=== PATIENT | female | born 1965 | race American Indian/Alaskan Native ===

== ENCOUNTER 2017-03-02 04:41 | Inpatient (IN) | payer SELFPAY ==
[2017-03-02] MEDS ORDERED: NACL 0.9% 500 ML 500 ML IV ONE (04:58)
[2017-03-02 06:13] LABS: Albumin 3.8 g/dL (3.9-5); Alkaline Phosphatase 81 units/L (35-129); BUN/Creatinine Ratio 23; Blood Urea Nitrogen 14 mg/dL (7-17); Carbon Dioxide 26 mmol/L (22-30); Chloride 102.4 mmol/L (98-107); Glucose 116 mg/dL (65-100); Sodium 140 mmol/L (137-145); Total Protein 7.6 g/dL (6.3-8.2)
[2017-03-02 06:16] LABS: Anion Gap 16 mmol/L; Potassium 4.7 mmol/L (3.6-5.0)
[2017-03-02 06:17] LABS: Alanine Aminotransferase 12 units/L (7-56)
[2017-03-02 06:20] LABS: Basophils % (Auto) 0.4 % (0.0-1.8); Eosinophils % (Auto) 8.9 % (0.0-4.3); Hematocrit 43.1 % (30.3-42.9); Hemoglobin 13.9 gm/dl (10.1-14.3); Mean Corpuscular HGB Conc 32 % (30-34); Mean Corpuscular Hemoglobin 29 pg (28-32); Mean Corpuscular Volume 89 fl (79-97); Platelet Count 327 K/mm3 (140-440); Red Blood Count 4.87 M/mm3 (3.65-5.03); White Blood Count 9.8 K/mm3 (4.5-11.0)
--- NOTE | 2017-03-02 06:22 | Emergency Department Report ---
ED Shortness of Breath HPI - General Chief Complaint: Fever Stated Complaint: ASTHMA Time Seen by Provider: 03/02/17 06:18 Source: patient Mode of arrival: Ambulatory Limitations: No Limitations - History of Present Illness Initial Comments: Patient states that she has been having cough occasionally productive of clear sputum for the last week. She's had dyspnea at rest and on exertion. He states that she is a type II diabetic and intermittently is on prednisone. She is not on home O2. She was found to be hypoxic on room air. At the time of my encounter she was not in respiratory distress but had persistent wheezing. Arterial blood gas showed that the patient had a PO2 was 48 which was relatively well tolerated. Work of breathing was normal. She was not retaining CO2. After the blood gas she was replaced on on oxygen. X-ray will reassess her condition as she did have some CO2 retention. MD Complaint: shortness of breath, "asthma attack" -: Gradual, week(s) Quality: other (no complaint of chest pain ) Consistency: constant Improves With: nothing Worsens With: exertion Known History Of: COPD Context: recent URI Associated Symptoms: denies other symptoms - Related Data Home Oxygen Therapy: No Home Medications Medication Instructions Recorded Confirmed Last Taken Albuterol (Nf) 2 puff IH BID 01/12/16 03/02/17 03/22/16 Enalapril Maleate 10 mg PO DAILY 01/12/16 03/02/17 03/22/16 metFORMIN 500 mg PO BID 01/12/16 03/02/17 03/22/16 Omeprazole Magnesium [PriLOSEC] 10 mg PO QDAY 03/02/17 03/02/17 Unknown Previous Rx's Medication Instructions Recorded Last Taken Type Flovent 44 MCG/PUFF HFA 2 puff IH BID #30 01/13/16 03/22/16 Rx Allergies Allergy/AdvReac Type Severity Reaction Status Date / Time No Known Allergies Allergy Unverified 11/02/13 13:26 ED Review of Systems ROS: Stated complaint: ASTHMA Other details as noted in HPI Constitutional: denies: chills, fever Eyes: denies: eye pain, eye discharge, vision change ENT: denies: ear pain, throat pain Respiratory: cough, shortness of breath, SOB with exertion, SOB at rest, wheezing Cardiovascular: denies: chest pain, palpitations Endocrine: no symptoms reported Gastrointestinal: denies: abdominal pain, nausea, diarrhea Genitourinary: denies: urgency, dysuria, discharge Musculoskeletal: denies: back pain, joint swelling, arthralgia Skin: denies: rash, lesions Neurological: denies: headache, weakness, paresthesias Psychiatric: denies: anxiety, depression Hematological/Lymphatic: denies: easy bleeding, easy bruising ED Past Medical Hx - Past Medical History Previous Medical History?: Yes Hx Hypertension: Yes Hx Heart Attack/AMI: No Hx Congestive Heart Failure: No Hx Diabetes: Yes Hx Deep Vein Thrombosis: No Hx Pulmonary Embolism: No Hx Liver Disease: No Hx Sickle Cell Disease: No Hx Asthma: Yes Hx COPD: Yes Hx Tuberculosis: No Hx HIV: No - Surgical History Past Surgical History?: Yes Hx Coronary Stent: No Hx Open Heart Surgery: No Hx Pacemaker: No Hx Internal Defibrillator: No Hx Appendectomy: No Hx Breast Surgery: No Additional Surgical History: c-sect x2 - Social History Smoking Status: Current Every Day Smoker Substance Use Type: None - Medications Home Medications: Home Medications Medication Instructions Recorded Confirmed Last Taken Type Albuterol (Nf) 2 puff IH BID 01/12/16 03/02/17 03/22/16 History Enalapril Maleate 10 mg PO DAILY 01/12/16 03/02/17 03/22/16 History metFORMIN 500 mg PO BID 01/12/16 03/02/17 03/22/16 History Flovent 44 MCG/PUFF HFA 2 puff IH BID #30 01/13/16 03/02/17 03/22/16 Rx Omeprazole Magnesium [PriLOSEC] 10 mg PO QDAY 03/02/17 03/02/17 Unknown History ED Physical Exam - General Limitations: No Limitations General appearance: alert, in no apparent distress - Head Head exam: Present: atraumatic, normocephalic - Eye Eye exam: Present: normal appearance. Absent: scleral icterus - ENT ENT exam: Present: normal exam, mucous membranes moist - Neck Neck exam: Present: normal inspection. Absent: tenderness, meningismus - Respiratory Respiratory exam: Present: wheezes (bilaterally), prolonged expiratory. Absent : normal lung sounds bilaterally, respiratory distress, accessory muscle use, decreased breath sounds - Cardiovascular Cardiovascular Exam: Present: regular rate, normal rhythm. Absent: systolic murmur, diastolic murmur, rubs, gallop - GI/Abdominal GI/Abdominal exam: Present: soft, normal bowel sounds. Absent: distended, tenderness, guarding, rebound, rigid - Extremities Exam Extremities exam: Present: normal inspection, normal capillary refill. Absent: tenderness, pedal edema, joint swelling, calf tenderness - Back Exam Back exam: Present: normal inspection - Neurological Exam Neurological exam: Present: alert, oriented X3, CN II-XII intact. Absent: motor sensory deficit - Psychiatric Psychiatric exam: Present: normal affect, normal mood - Skin Skin exam: Present: warm, dry, intact, normal color. Absent: rash ED Course Vital Signs 03/02/17 03/02/17 03/02/17 04:51 06:02 06:13 Temperature 97.9 F 98.5 F Pulse Rate 108 H 83 Pulse Rate [ Bilateral Upper Lobe] Respiratory 24 23 20 Rate Respiratory Rate [Bilateral Upper Lobe] Blood Pressure 137/94 146/94 [Right] O2 Sat by Pulse 90 95 97 Oximetry 03/02/17 03/02/17 03/02/17 07:12 07:25 07:52 Temperature 98.1 F Pulse Rate 102 H Pulse Rate [ 85 88 Bilateral Upper Lobe] Respiratory 32 H Rate Respiratory 20 18 Rate [Bilateral Upper Lobe] Blood Pressure 131/83 [Right] O2 Sat by Pulse 93 Oximetry 03/02/17 08:26 Temperature 98.2 F Pulse Rate 94 H Pulse Rate [ Bilateral Upper Lobe] Respiratory 20 Rate Respiratory Rate [Bilateral Upper Lobe] Blood Pressure 110/74 [Right] O2 Sat by Pulse 93 Oximetry - Reevaluation(s) Reevaluation #1: Patient given mag sulfate, Solu-Medrol, supplemental oxygen and DuoNeb as. Admission to hospital service. 03/02/17 11:10 03/02/17 11:11 ED Medical Decision Making - Lab Data Result diagrams: 03/02/17 06:01 03/02/17 06:01 Laboratory Results - last 24 hr 03/02/17 03/02/17 03/02/17 05:17 06:01 06:01 WBC 9.8 RBC 4.87 Hgb 13.9 Hct 43.1 H MCV 89 MCH 29 MCHC 32 RDW 16.0 H Plt Count 327 Lymph % (Auto) 27.9 Gilliam % (Auto) 8.4 H Eos % (Auto) 8.9 H Baso % (Auto) 0.4 Lymph # 2.7 Gilliam # 0.8 Eos # 0.9 H Baso # 0.0 Seg Neutrophils % 54.4 Seg Neutrophils # 5.3 VBG pH 7.332 Sodium 140 Potassium 4.7 Chloride 102.4 Carbon Dioxide 26 Anion Gap 16 BUN 14 Creatinine 0.6 L Estimated GFR > 60 BUN/Creatinine Ratio 23 Glucose 116 H Calcium 9.0 Total Bilirubin 0.30 AST 22 ALT 12 Alkaline Phosphatase 81 Total Protein 7.6 Albumin 3.8 L Albumin/Globulin Ratio 1.0 Laboratory Results - last 24 hr 03/02/17 03/02/17 03/02/17 05:01 05:01 05:17 WBC RBC Hgb Hct MCV MCH MCHC RDW Plt Count Lymph % (Auto) Gilliam % (Auto) Eos % (Auto) Baso % (Auto) Lymph # Gilliam # Eos # Baso # Seg Neutrophils % Seg Neutrophils # PT 13.4 INR 0.97 APTT 30.3 ABG pH ABG pCO2 ABG pO2 ABG HCO3 ABG O2 Saturation ABG O2 Content ABG Base Excess ABG Hemoglobin ABG Carboxyhemoglobin ABG Methemoglobin VBG pH 7.332 Oxyhemoglobin FiO2 Sodium Potassium Chloride Carbon Dioxide Anion Gap BUN Creatinine Estimated GFR BUN/Creatinine Ratio Glucose Hemoglobin A1c Lactic Acid Calcium Magnesium Total Bilirubin Direct Bilirubin Indirect Bilirubin AST ALT Alkaline Phosphatase Troponin T NT-Pro-B Natriuret Pep Total Protein Albumin Albumin/Globulin Ratio 03/02/17 03/02/17 03/02/17 06:01 06:01 06:01 WBC 9.8 RBC 4.87 Hgb 13.9 Hct 43.1 H MCV 89 MCH 29 MCHC 32 RDW 16.0 H Plt Count 327 Lymph % (Auto) 27.9 Gilliam % (Auto) 8.4 H Eos % (Auto) 8.9 H Baso % (Auto) 0.4 Lymph # 2.7 Gilliam # 0.8 Eos # 0.9 H Baso # 0.0 Seg Neutrophils % 54.4 Seg Neutrophils # 5.3 PT INR APTT ABG pH ABG pCO2 ABG pO2 ABG HCO3 ABG O2 Saturation ABG O2 Content ABG Base Excess ABG Hemoglobin ABG Carboxyhemoglobin ABG Methemoglobin VBG pH Oxyhemoglobin FiO2 Sodium 140 Potassium 4.7 Chloride 102.4 Carbon Dioxide 26 Anion Gap 16 BUN 14 Creatinine 0.6 L Estimated GFR > 60 BUN/Creatinine Ratio 23 Glucose 116 H Hemoglobin A1c Lactic Acid Calcium 9.0 Magnesium Total Bilirubin 0.30 Direct Bilirubin Indirect Bilirubin AST 22 ALT 12 Alkaline Phosphatase 81 Troponin T < 0.010 NT-Pro-B Natriuret Pep Total Protein 7.6 Albumin 3.8 L Albumin/Globulin Ratio 1.0 03/02/17 03/02/17 03/02/17 06:01 06:01 07:18 WBC RBC Hgb Hct MCV MCH MCHC RDW Plt Count Lymph % (Auto) Gilliam % (Auto) Eos % (Auto) Baso % (Auto) Lymph # Gilliam # Eos # Baso # Seg Neutrophils % Seg Neutrophils # PT INR APTT ABG pH 7.380 ABG pCO2 45.3 ABG pO2 48.2 L ABG HCO3 26.2 H ABG O2 Saturation 82.1 L ABG O2 Content 15.9 ABG Base Excess 0.7 ABG Hemoglobin 14.2 ABG Carboxyhemoglobin 2.2 ABG Methemoglobin 0.8 VBG pH Oxyhemoglobin 79.6 L FiO2 21 Sodium Potassium Chloride Carbon Dioxide Anion Gap BUN Creatinine Estimated GFR BUN/Creatinine Ratio Glucose Hemoglobin A1c 5.6 Lactic Acid Calcium Magnesium 2.10 Total Bilirubin 0.40 Direct Bilirubin < 0.2 Indirect Bilirubin 0.2 AST 17 ALT 10 Alkaline Phosphatase 79 Troponin T NT-Pro-B Natriuret Pep 29.25 Total Protein 7.4 Albumin 3.7 L Albumin/Globulin Ratio 1.0 03/02/17 07:35 WBC RBC Hgb Hct MCV MCH MCHC RDW Plt Count Lymph % (Auto) Gilliam % (Auto) Eos % (Auto) Baso % (Auto) Lymph # Gilliam # Eos # Baso # Seg Neutrophils % Seg Neutrophils # PT INR APTT ABG pH ABG pCO2 ABG pO2 ABG HCO3 ABG O2 Saturation ABG O2 Content ABG Base Excess ABG Hemoglobin ABG Carboxyhemoglobin ABG Methemoglobin VBG pH Oxyhemoglobin FiO2 Sodium Potassium Chloride Carbon Dioxide Anion Gap BUN Creatinine Estimated GFR BUN/Creatinine Ratio Glucose Hemoglobin A1c Lactic Acid 0.90 Calcium Magnesium Total Bilirubin Direct Bilirubin Indirect Bilirubin AST ALT Alkaline Phosphatase Troponin T NT-Pro-B Natriuret Pep Total Protein Albumin Albumin/Globulin Ratio - EKG Data -: EKG Interpreted by Tx EKG shows normal: sinus rhythm, axis, intervals, QRS complexes, ST-T waves Rate: normal - EKG Data Interpretation: no acute changes - Radiology Data Radiology results: report reviewed interpreted by me: Chest x-ray shows no acute process Critical care attestation.: If time is entered above; I have spent that time in minutes in the direct care of this critically ill patient, excluding procedure time. ED Disposition Clinical Impression: Hypoxia, COPD with acute exacerbation Disposition: OP ADMIT IP TO THIS HOSP Is pt being admited?: No Does the pt Need Aspirin: Yes Condition: Stable Time of Disposition: 11:21
[2017-03-02 06:24] LABS: INR 0.97 (0.87-1.13)
[2017-03-02] MEDS ORDERED: DUONEB *Not for PRN Use IH ONE (06:39)
[2017-03-02] MEDS ORDERED: MAGNESIUM SULFATE 2GM/50ML 2 GM/50 ML BAG IV ONE (06:40)
[2017-03-02 07:03] LABS: Alanine Aminotransferase 10 units/L (7-56); Albumin 3.7 g/dL (3.9-5); Alkaline Phosphatase 79 units/L (35-129); Bilirubin,Direct < 0.2 mg/dL (0-0.2); Bilirubin,Indirect 0.2 mg/dL; Total Protein 7.4 g/dL (6.3-8.2)
--- NOTE | 2017-03-02 07:23 | XRay Report ---
ROUTINE CHEST, TWO VIEWS: HISTORY: Shortness of breath. The trachea, heart, mediastinal contour, lung macdonald and bony thorax are unremarkable. IMPRESSION: Unremarkable chest x-ray. No significant change since 03/07/16.
[2017-03-02 07:27] LABS: ABG Base Excess 0.7 mmol/L (-2.0-3.0); ABG HCO3 26.2 mmol/L (20.0-26.0); ABG Oxygen Saturation 82.1 % (95.0-99.0); ABG PCO2 45.3 mm Hg; ABG PH 7.38 pH Units (7.350-7.450); ABG PO2 48.2 mm Hg (80.0-90.0)
[2017-03-02] MEDS ORDERED: PROVENTIL IH PRN (08:58)
[2017-03-02] MEDS ORDERED: DULCOLAX PR PRN (08:58)
[2017-03-02] MEDS ORDERED: D50W (25GM) Syringe IV PRN (09:01)
[2017-03-02] MEDS ORDERED: ROBITUSSIN AC PO ONE (09:04)
[2017-03-02] MEDS ORDERED: ROBITUSSIN AC PO PRN (09:06)
--- NOTE | 2017-03-02 09:08 | History and Physical Report ---
<ZANA FITCH - Last Filed: 03/02/17 12:57> History of Present Illness Date of examination: 03/02/17 Date of admission: 03/02/2017 Chief complaint: Shortness of breath and cough History of present illness: Patient is a 52-year-old female with past medical history of diabetes mellitus, hypertension, COPD and tobacco abuse disorder, who presents to the emergency department with complaining of shortness of breath.Until last week patient was at her normal baseline state of health; since last week hes has worsening dyspnea on light exertion, productive cough and generalized weakness. Patient developed difficulty of breathing yesterday and she has had progressive worsening of shortness of breath. This morning while walking in the house, shortly thereafter, she felt like she could not catch her breath and got worried so called 911 and brought her to the Emergency Department. She is not on oxygen at home. Patient denies she has had no fevers, chills, or night sweats. No hx of recurrent pneumonia. He has no sick contact, TB exposure. Past History Past Medical History: COPD, diabetes, hypertension Past Surgical History: No surgical history Social history: smoking Family history: diabetes, hypertension Medications and Allergies Allergies Allergy/AdvReac Type Severity Reaction Status Date / Time No Known Allergies Allergy Unverified 11/02/13 13:26 Home Medications Medication Instructions Recorded Confirmed Last Taken Type Albuterol (Nf) 2 puff IH BID 01/12/16 03/02/17 03/22/16 History Enalapril Maleate 10 mg PO DAILY 01/12/16 03/02/17 03/22/16 History metFORMIN 500 mg PO BID 01/12/16 03/02/17 03/22/16 History Flovent 44 MCG/PUFF HFA 2 puff IH BID #30 01/13/16 03/02/17 03/22/16 Rx Omeprazole Magnesium [PriLOSEC] 10 mg PO QDAY 03/02/17 03/02/17 Unknown History Active Meds: Active Medications Acetaminophen (Tylenol) 650 mg PO Q4H PRN PRN Reason: Pain MILD(1-3)/Fever >100.5/[place] Albuterol (Proventil) 2.5 mg IH Q3HRT PRN PRN Reason: Shortness Of Breath Albuterol/Ipratropium (Duoneb *Not For Prn Use*) 1 ampul IH Q6HRT [facility] Bisacodyl (Dulcolax) 10 mg CO QDAY PRN PRN Reason: Constipation unrelieved by MOM Dextrose (D50w (25gm) Syringe) 50 ml IV PRN PRN PRN Reason: Hypoglycemia Enoxaparin Sodium (Lovenox) 40 mg SUB-Q QDAY [facility] Levofloxacin/Dextrose (Levaquin 500mg/100ml) 500 mg in 100 mls @ 100 mls/hr IV Q24HR [facility] PRN Reason: Protocol Insulin Aspart (Novolog) 0 units SUB-Q AC [facility] PRN Reason: Protocol Insulin Aspart (Novolog) 0 units SUB-Q QHS [facility] PRN Reason: Protocol Methylprednisolone Sodium Succinate (Solu-Medrol) 40 mg IV Q4H [facility] Miscellaneous Medication (Enalapril Maleate) 10 mg PO DAILY [facility] Miscellaneous Medication (Metformin) 500 mg PO BID [facility] Miscellaneous Medication (Omeprazole Magnesium [Prilosec]) 10 mg PO QDAY [facility] Oxycodone/Acetaminophen (Percocet 5/325) 1 tab PO Q6H PRN PRN Reason: Pain, Moderate (4-6) Pseudoephedrine/Acetam/Chlorphenir (Robitussin Ac) 5 ml PO ONCE ONE Stop: 03/02/17 09:05 Review of Systems Constitutional: chills, no weight gain, no fever Ears, nose, mouth and throat: no decreased hearing, no nose pain, no nasal congestion, no nasal discharge Breasts: no change in shape, no swelling, no mass Cardiovascular: no palpitations, no rapid/irregular heart beat, no edema, no syncope, no lightheadedness Respiratory: no cough with sputum, no excessive sputum, no hemoptysis, no shortness of breath Gastrointestinal: no vomiting, no diarrhea, no constipation, no change in bowel habits Genitourinary Female: no dysuria, no urinary frequency, no urgency, no stress incontinence Rectal: no pain, no incontinence, no bleeding Musculoskeletal: no shooting arm pain, no arm numbness/tingling, no low back pain, no shooting leg pain Integumentary: no redness, no sores, no wounds, no jaundice Neurological: no weakness, no parathesias, no numbness, no tingling, no seizures Psychiatric: no change in sleep habits, no sleep disturbances, no insomnia, no hypersomnia, no change in appetite Endocrine: no heat intolerance, no polyphagia, no excessive thirst, no polydipsia Hematologic/Lymphatic: no easy bruising, no easy bleeding Allergic/Immunologic: no urticaria, no allergic rhinitis Exam - Constitutional Vitals: Temp Pulse Resp BP Pulse Ox 98.2 F 94 H 20 110/74 93 03/02/17 08:26 03/02/17 08:26 03/02/17 08:26 03/02/17 08:26 03/02/17 08:26 General appearance: Present: no acute distress - EENT Eyes: Present: PERRL ENT: hearing intact - Neck Neck: Present: supple - Respiratory Respiratory effort: normal Respiratory: bilateral: rhonchi, wheezing - Cardiovascular Rhythm: regular Heart Sounds: Present: S1 & S2 - Extremities Extremities: no ischemia - Abdominal General gastrointestinal: Present: soft, non-tender - Rectal Rectal Exam: deferred - Integumentary Integumentary: Present: clear, warm, dry - Musculoskeletal Musculoskeletal: strength equal bilaterally - Psychiatric Psychiatric: appropriate mood/affect - Neurologic Neurologic: CNII-XII intact - Allied Health Allied health notes reviewed: nursing Results - Labs CBC & Chem 7: 03/02/17 06:01 03/02/17 06:01 Labs: Laboratory Last Values WBC 9.8 K/mm3 (4.5-11.0) 03/02/17 06:01 RBC 4.87 M/mm3 (3.65-5.03) 03/02/17 06:01 Hgb 13.9 gm/dl (10.1-14.3) 03/02/17 06:01 Hct 43.1 % (30.3-42.9) H 03/02/17 06:01 MCV 89 fl (79-97) 03/02/17 06:01 MCH 29 pg (28-32) 03/02/17 06:01 MCHC 32 % (30-34) 03/02/17 06:01 RDW 16.0 % (13.2-15.2) H 03/02/17 06:01 Plt Count 327 K/mm3 (140-440) 03/02/17 06:01 Lymph % (Auto) 27.9 % (13.4-35.0) 03/02/17 06:01 [place] % (Auto) 8.4 % (0.0-7.3) H 03/02/17 06:01 Eos % (Auto) 8.9 % (0.0-4.3) H 03/02/17 06:01 Baso % (Auto) 0.4 % (0.0-1.8) 03/02/17 06:01 Lymph # 2.7 K/mm3 (1.2-5.4) 03/02/17 06:01 [place] # 0.8 K/mm3 (0.0-0.8) 03/02/17 06:01 Eos # 0.9 K/mm3 (0.0-0.4) H 03/02/17 06:01 Baso # 0.0 K/mm3 (0.0-0.1) 03/02/17 06:01 Seg Neutrophils % 54.4 % (40.0-70.0) 03/02/17 06:01 Seg Neutrophils # 5.3 K/mm3 (1.8-7.7) 03/02/17 06:01 PT 13.4 Sec. (12.2-14.9) 03/02/17 05:01 INR 0.97 (0.87-1.13) 03/02/17 05:01 APTT 30.3 Sec. (24.2-36.6) 03/02/17 05:01 ABG pH 7.380 pH Units (7.350-7.450) 03/02/17 07:18 ABG pCO2 45.3 mm Hg 03/02/17 07:18 ABG pO2 48.2 mm Hg (80.0-90.0) L 03/02/17 07:18 ABG HCO3 26.2 mmol/L (20.0-26.0) H 03/02/17 07:18 ABG O2 Saturation 82.1 % (95.0-99.0) L 03/02/17 07:18 ABG O2 Content 15.9 (0.0-44) 03/02/17 07:18 ABG Base Excess 0.7 mmol/L (-2.0-3.0) 03/02/17 07:18 ABG Hemoglobin 14.2 gm/dl (12.0-16.0) 03/02/17 07:18 ABG Carboxyhemoglobin 2.2 % (0.0-5.0) 03/02/17 07:18 ABG Methemoglobin 0.8 % (0.0-1.5) 03/02/17 07:18 VBG pH 7.332 (7.320-7.420) 03/02/17 05:17 Oxyhemoglobin 79.6 % (95.0-99.0) L 03/02/17 07:18 FiO2 21 % 03/02/17 07:18 Sodium 140 mmol/L (137-145) 03/02/17 06:01 Potassium 4.7 mmol/L (3.6-5.0) 03/02/17 06:01 Chloride 102.4 mmol/L (98-107) 03/02/17 06:01 Carbon Dioxide 26 mmol/L (22-30) 03/02/17 06:01 Anion Gap 16 mmol/L 03/02/17 06:01 BUN 14 mg/dL (7-17) 03/02/17 06:01 Creatinine 0.6 mg/dL (0.7-1.2) L 03/02/17 06:01 Estimated GFR > 60 ml/min 03/02/17 06:01 BUN/Creatinine Ratio 23 % 03/02/17 06:01 Glucose 116 mg/dL (65-100) H 03/02/17 06:01 Lactic Acid 0.90 mmol/L (0.7-2.0) 03/02/17 07:35 Calcium 9.0 mg/dL (8.4-10.2) 03/02/17 06:01 Magnesium 2.10 mg/dL (1.7-2.3) 03/02/17 06:01 Total Bilirubin 0.40 mg/dL (0.1-1.2) 03/02/17 06:01 Direct Bilirubin < 0.2 mg/dL (0-0.2) 03/02/17 06:01 Indirect Bilirubin 0.2 mg/dL 03/02/17 06:01 AST 17 units/L (5-40) 03/02/17 06:01 ALT 10 units/L (7-56) 03/02/17 06:01 Alkaline Phosphatase 79 units/L (35-129) 03/02/17 06:01 Troponin T < 0.010 ng/mL (0.00-0.029) 03/02/17 06:01 NT-Pro-B Natriuret Pep 29.25 pg/mL (0-900) 03/02/17 06:01 Total Protein 7.4 g/dL (6.3-8.2) 03/02/17 06:01 Albumin 3.7 g/dL (3.9-5) L 03/02/17 06:01 Albumin/Globulin Ratio 1.0 % 03/02/17 06:01 - Imaging and Cardiology Chest x-ray: image reviewed (Unremarkable ) Assessment and Plan Assessment and plan: Patient is a 52-year-old female with past medical history of diabetes mellitus, hypertension, COPD and tobacco abuse disorder, who presents to the emergency department with complaining of shortness of breath.Until last week patient was at her normal baseline state of health; since last week hes has worsening dyspnea on light exertion, productive cough and generalized weakness. Acute respiratory failure with hypoxia Patient oxygen saturation improved with 3LNC; currently SPO2 98%. No acute respiratory distress noted. Aggressive Nebulizers/Inhalers ABG when necessary Oxygen supplement Supportive care Acute COPD exacerbation Continue on Duoneb every 6 hours Wean IV steroid Solumedrol Initiated empiric treatment of Levaquin Oxygen as necessary Diabetes mellitus Accu-Chek before meals and at bedtime Sliding scale insulin/NovoLog ADA carbohydrate consistent diet Hypertensive urgency Continue home antihypertensive medications Closely monitor blood pressure Tobacco abuse Smoking cessation counseling done. Patient strongly advised to quit. DVT prophylaxis Lovenox Advance Directives: Yes VTE prophylaxis?: Chemical Contraindication Mechanical VTE Prophylaxis: Treatment Not Indicated Plan of care discussed with patient/family: Yes <NICHOLE MCKEON - Last Filed: 03/03/17 08:30> History of Present Illness Date of admission: 03/02/17 08:58 Medications and Allergies Active Meds: Active Medications Acetaminophen (Tylenol) 650 mg PO Q4H PRN PRN Reason: Pain MILD(1-3)/Fever >100.5/[place] Albuterol (Proventil) 2.5 mg IH Q3HRT PRN PRN Reason: Shortness Of Breath Albuterol/Ipratropium (Duoneb *Not For Prn Use*) 1 ampul IH Q6HRT [facility] Last Admin: 03/03/17 08:21 Dose: 1 ampul Aspirin (Baby Aspirin) 81 mg PO QDAY [facility] Last Admin: 03/02/17 13:20 Dose: 81 mg Bisacodyl (Dulcolax) 10 mg CO QDAY PRN PRN Reason: Constipation unrelieved by MOM Dextrose (D50w (25gm) Syringe) 50 ml IV PRN PRN PRN Reason: Hypoglycemia Enoxaparin Sodium (Lovenox) 40 mg SUB-Q QDAY [facility] Last Admin: 03/02/17 10:38 Dose: 40 mg Levofloxacin/Dextrose (Levaquin 500mg/100ml) 500 mg in 100 mls @ 100 mls/hr IV Q24HR [facility] PRN Reason: Protocol Last Admin: 03/02/17 10:35 Dose: 100 mls/hr Insulin Aspart (Novolog) 0 units SUB-Q AC [facility] PRN Reason: Protocol Last Admin: 03/02/17 17:52 Dose: 2 units Insulin Aspart (Novolog) 0 units SUB-Q QHS [facility] PRN Reason: Protocol Last Admin: 03/02/17 22:00 Dose: Not Given Lisinopril (Zestril) 10 mg PO QDAY [facility] Last Admin: 03/02/17 13:19 Dose: 10 mg Metformin HCl (Glucophage) 500 mg PO BIDDIAB [facility] Last Admin: 03/02/17 17:51 Dose: 500 mg Methylprednisolone Sodium Succinate (Solu-Medrol) 40 mg IV Q6HR [facility] Last Admin: 03/03/17 02:41 Dose: Not Given Ondansetron HCl (Zofran) 4 mg IV Q4H PRN PRN Reason: Nausea And Vomiting Oxycodone/Acetaminophen (Percocet 5/325) 1 tab PO Q6H PRN PRN Reason: Pain, Moderate (4-6) Last Admin: 03/02/17 17:51 Dose: 1 tab Pantoprazole Sodium (Protonix) 20 mg PO QDAY [facility] Last Admin: 03/02/17 13:20 Dose: 20 mg Pseudoephedrine/Acetam/Chlorphenir (Robitussin Ac) 5 ml PO Q6HR PRN PRN Reason: Cough Exam - Constitutional Vitals: Temp Pulse Resp BP Pulse Ox 98.4 F 92 H 20 106/64 90 03/03/17 00:32 03/03/17 01:30 03/03/17 01:30 03/03/17 00:32 03/03/17 00:32 Results - Labs CBC & Chem 7: 03/03/17 06:02 03/03/17 06:02 Labs: Laboratory Last Values WBC 12.2 K/mm3 (4.5-11.0) H 03/03/17 06:02 RBC 4.45 M/mm3 (3.65-5.03) 03/03/17 06:02 Hgb 13.0 gm/dl (10.1-14.3) 03/03/17 06:02 Hct 39.7 % (30.3-42.9) 03/03/17 06:02 MCV 89 fl (79-97) 03/03/17 06:02 MCH 29 pg (28-32) 03/03/17 06:02 MCHC 33 % (30-34) 03/03/17 06:02 RDW 15.8 % (13.2-15.2) H 03/03/17 06:02 Plt Count 303 K/mm3 (140-440) 03/03/17 06:02 Lymph % (Auto) 12.6 % (13.4-35.0) L 03/03/17 06:02 [place] % (Auto) 8.8 % (0.0-7.3) H 03/03/17 06:02 Eos % (Auto) 0.0 % (0.0-4.3) 03/03/17 06:02 Baso % (Auto) 0.2 % (0.0-1.8) 03/03/17 06:02 Lymph # 1.5 K/mm3 (1.2-5.4) 03/03/17 06:02 [place] # 1.1 K/mm3 (0.0-0.8) H 03/03/17 06:02 Eos # 0.0 K/mm3 (0.0-0.4) 03/03/17 06:02 Baso # 0.0 K/mm3 (0.0-0.1) 03/03/17 06:02 Seg Neutrophils % 78.4 % (40.0-70.0) H 03/03/17 06:02 Seg Neutrophils # 9.6 K/mm3 (1.8-7.7) H 03/03/17 06:02 PT 13.4 Sec. (12.2-14.9) 03/02/17 05:01 INR 0.97 (0.87-1.13) 03/02/17 05:01 APTT 30.3 Sec. (24.2-36.6) 03/02/17 05:01 ABG pH 7.380 pH Units (7.350-7.450) 03/02/17 07:18 ABG pCO2 45.3 mm Hg 03/02/17 07:18 ABG pO2 48.2 mm Hg (80.0-90.0) L 03/02/17 07:18 ABG HCO3 26.2 mmol/L (20.0-26.0) H 03/02/17 07:18 ABG O2 Saturation 82.1 % (95.0-99.0) L 03/02/17 07:18 ABG O2 Content 15.9 (0.0-44) 03/02/17 07:18 ABG Base Excess 0.7 mmol/L (-2.0-3.0) 03/02/17 07:18 ABG Hemoglobin 14.2 gm/dl (12.0-16.0) 03/02/17 07:18 ABG Carboxyhemoglobin 2.2 % (0.0-5.0) 03/02/17 07:18 ABG Methemoglobin 0.8 % (0.0-1.5) 03/02/17 07:18 VBG pH 7.332 (7.320-7.420) 03/02/17 05:17 Oxyhemoglobin 79.6 % (95.0-99.0) L 03/02/17 07:18 FiO2 21 % 03/02/17 07:18 Sodium 140 mmol/L (137-145) 03/03/17 06:02 Potassium 4.0 mmol/L (3.6-5.0) 03/03/17 06:02 Chloride 101.8 mmol/L (98-107) 03/03/17 06:02 Carbon Dioxide 26 mmol/L (22-30) 03/03/17 06:02 Anion Gap 16 mmol/L 03/03/17 06:02 BUN 15 mg/dL (7-17) 03/03/17 06:02 Creatinine 0.5 mg/dL (0.7-1.2) L 03/03/17 06:02 Estimated GFR > 60 ml/min 03/03/17 06:02 BUN/Creatinine Ratio 30 % 03/03/17 06:02 Glucose 118 mg/dL (65-100) H 03/03/17 06:02 POC Glucose 104 (70-105) 03/03/17 06:18 Hemoglobin A1c 5.6 % (4-6) 03/02/17 06:01 Lactic Acid 0.90 mmol/L (0.7-2.0) 03/02/17 07:35 Calcium 8.9 mg/dL (8.4-10.2) 03/03/17 06:02 Magnesium 2.10 mg/dL (1.7-2.3) 03/02/17 06:01 Total Bilirubin 0.40 mg/dL (0.1-1.2) 03/02/17 06:01 Direct Bilirubin < 0.2 mg/dL (0-0.2) 03/02/17 06:01 Indirect Bilirubin 0.2 mg/dL 03/02/17 06:01 AST 17 units/L (5-40) 03/02/17 06:01 ALT 10 units/L (7-56) 03/02/17 06:01 Alkaline Phosphatase 79 units/L (35-129) 03/02/17 06:01 Troponin T < 0.010 ng/mL (0.00-0.029) 03/02/17 06:01 NT-Pro-B Natriuret Pep 29.25 pg/mL (0-900) 03/02/17 06:01 Total Protein 7.4 g/dL (6.3-8.2) 03/02/17 06:01 Albumin 3.7 g/dL (3.9-5) L 03/02/17 06:01 Albumin/Globulin Ratio 1.0 % 03/02/17 06:01 Urine Color Yellow (Yellow) 03/02/17 17:30 Urine Turbidity Clear (Clear) 03/02/17 17:30 Urine pH 5.0 (5.0-7.0) 03/02/17 17:30 Ur Specific Mc[place]osh 1.018 (1.003-1.030) 03/02/17 17:30 Urine Protein <15 mg/dl mg/dL (Negative) 03/02/17 17:30 Urine Glucose (UA) 150 mg/dL (Negative) 03/02/17 17:30 Urine Ketones Neg mg/dL (Negative) 03/02/17 17:30 Urine Blood Neg (Negative) 03/02/17 17:30 Urine Nitrite Neg (Negative) 03/02/17 17:30 Urine Bilirubin Neg (Negative) 03/02/17 17:30 Urine Urobilinogen < 2.0 mg/dL (<2.0) 03/02/17 17:30 Ur Leukocyte Esterase Neg (Negative) 03/02/17 17:30 Urine WBC (Auto) < 1.0 /HPF (0.0-6.0) 03/02/17 17:30 Urine RBC (Auto) 1.0 /HPF (0.0-6.0) 03/02/17 17:30 U Epithel Cells (Auto) < 1.0 /HPF (0-13.0) 03/02/17 17:30 Urine Mucus Few /HPF 03/02/17 17:30 Assessment and Plan Assessment and plan: I saw and evaluated the patient. I agree with the findings and the plan of care as documented in the Nurse Practitioner's H/P note, with the following corrections and additions. Patient had fever episode 101 a day before presentation. Patient may have pneumonitis on top of COPD exacerbation. Advance Directives: Yes VTE prophylaxis?: Chemical Plan of care discussed with patient/family: Yes
[2017-03-02] MEDS ORDERED: ZOFRAN IV PRN (09:09)
[2017-03-02] MEDS ORDERED: NON-FORMULARY (Metformin 500 MG) PO SCH (10:00)
[2017-03-02] MEDS ORDERED: TYLENOL PO PRN (10:00)
[2017-03-02] MEDS ORDERED: ENALAPRIL MALEATE 10 MG PO SCH (10:00)
[2017-03-02] MEDS ORDERED: OMEPRAZOLE MAGNESIUM 10 MG PO SCH (10:00)
[2017-03-02] MEDS ORDERED: GLUCOPHAGE ONE (10:20)
[2017-03-02] MEDS: LEVAQUIN 500MG/100ML 500 MG/100 ML BAG IV SCH (10:35)
[2017-03-02] MEDS: PERCOCET 5/325 PO PRN ×2 (10:37→17:51)
[2017-03-02] MEDS: LOVENOX SUB-Q SCH (10:38)
[2017-03-02] MEDS: ZESTRIL PO SCH (13:19)
[2017-03-02] MEDS: BABY ASPIRIN PO SCH (13:20)
[2017-03-02] MEDS: PROTONIX PO SCH (13:20)
[2017-03-02] MEDS: GLUCOPHAGE PO SCH ×2 (13:23→17:51)
[2017-03-02] MEDS: NOVOLOG SUB-Q SCH ×2 (13:35→17:52)
[2017-03-02] MEDS: DUONEB *Not for PRN Use IH SCH ×2 (14:08→20:28)
[2017-03-02 17:54] LABS: Bilirubin,Urine NEG (Negative); Blood,Urine NEG (Negative); Ketones,Urine NEG (Negative); Leukocyte Esterase,Urine NEG (Negative); Mucus,Urine FEW /HPF; Nitrite,Urine NEG (Negative); Protein,Urine <15 mg/dL mg/dL (Negative); Urobilinogen,Urine < 2.0 mg/dL (<2.0); WBC,Urine < 1.0 /HPF (0.0-6.0)
[2017-03-02] MEDS ORDERED: NOVOLOG SUB-Q SCH (22:00)
[2017-03-03] MEDS: DUONEB *Not for PRN Use IH SCH ×3 (01:20→13:59)
[2017-03-03 06:31] LABS: Basophils % (Auto) 0.2 % (0.0-1.8); Hematocrit 39.7 % (30.3-42.9); Mean Corpuscular HGB Conc 33 % (30-34); Mean Corpuscular Hemoglobin 29 pg (28-32); Mean Corpuscular Volume 89 fl (79-97); Platelet Count 303 K/mm3 (140-440); Red Blood Count 4.45 M/mm3 (3.65-5.03); Red Cell Distribution Width 15.8 % (13.2-15.2); White Blood Count 12.2 K/mm3 (4.5-11.0)
[2017-03-03 06:54] LABS: Anion Gap 16 mmol/L; BUN/Creatinine Ratio 30; Blood Urea Nitrogen 15 mg/dL (7-17); Calcium 8.9 mg/dL (8.4-10.2); Carbon Dioxide 26 mmol/L (22-30); Chloride 101.8 mmol/L (98-107); Glucose 118 mg/dL (65-100); Sodium 140 mmol/L (137-145)
[2017-03-03 09:44] VITALS: BP 122/80
--- NOTE | 2017-03-03 11:36 | Discharge Summary ---
Providers - Providers Date of Admission: 03/02/17 08:58 Attending physician: NICHOLE MCKEON MD Primary care physician: DIRECTOR OF RELIGIOUS ACTIVITIES Hospitalization Reason for admission: COPD exacerbation, Acute hypoxic respiratory failure Condition: Stable Disposition: DC-01 TO HOME OR SELFCARE Time spent for discharge: 31 minutes - Discharge Diagnoses (1) Hypertension Status: Acute Qualifiers: Hypertension type: H (2) COPD with acute exacerbation Status: Acute (3) Hypoxia Status: Acute (4) Acute bronchitis Status: Acute Qualifiers: Bronchitis organism: B (5) Asthma exacerbation Status: Acute Qualifiers: Asthma severity: A Asthma persistence: A (6) Tobacco abuse counseling Status: Acute (7) Diabetes mellitus Status: Chronic Qualifiers: Diabetes mellitus type: D Diabetes mellitus complication status: D Diabetes mellitus complication detail: D Diabetic retinopathy severity: D Proliferative retinopathy type: P Diabetes mellitus macular edema: D Diabetes mellitus intermodal customer service insulin use: D Laterality: L Chronic kidney disease stage: C Core Measure Documentation - Palliative Care Palliative Care/ Comfort Measures: Not Applicable - Core Measures Any of the following diagnoses?: none Exam - Physical Exam Narrative exam: Not in cardiopulmonary distress. The patient is morbidly obese. Vital signs as documented. Head exam is unremarkable. No scleral icterus . Neck is without jugular venous distension. Lungs are clear to auscultation. Cardiac exam reveals regular rate and Rhythm. Abdominal exam reveals normal bowel sounds. Extremities are nonedematous and both femoral and pedal pulses are normal. MANAGER SEMICONDUCTOR: Alert and oriented 3. No focal weakness. - Constitutional Vitals: Temp Pulse Resp BP Pulse Ox 98.2 F 100 H 22 122/80 95 03/03/17 09:41 03/03/17 09:41 03/03/17 09:41 03/03/17 09:41 03/03/17 09:41 Plan Activity: no restrictions Weight Bearing Status: Full Weight Bearing Diet: low cholesterol, low salt Follow up with: PRIMARY CAREMD [Primary Care Provider] - 3-5 Days Prescriptions: Pravastatin Sodium [Pravastatin] 10 mg PO QHS #30 tablet Albuterol (Nf) 2 puff IH BID #1 Albuterol Sulfate [Albuterol 0.63% NEBS] 0.63 mg IH TID PRN #60 ml PRN Reason: Wheezing Enalapril Maleate 10 mg PO DAILY #30 Flovent 44 MCG/PUFF HFA 2 puff IH BID #30 Levofloxacin [Levaquin TAB] 500 mg PO QDAY #5 tablet metFORMIN 500 mg PO BID #30 Nebulizer [Aeroneb Go Nebulizer] 1 each MC TID #1 each Omeprazole Magnesium [PriLOSEC] 10 mg PO QDAY #30 suspdr.pkt Prednisone [predniSONE 5 mg (6-Day Pack, 21 Tabs)] 5 mg PO .TAPER #1 tab.ds.pk
[2017-03-03] MEDS: GLUCOPHAGE PO SCH (11:57)
[2017-03-03] MEDS: LEVAQUIN 500MG/100ML 500 MG/100 ML BAG IV SCH (12:10)
[2017-03-03] MEDS: LOVENOX SUB-Q SCH (12:11)
[2017-03-03] MEDS: PROTONIX PO SCH (12:12)
[2017-03-03] MEDS: BABY ASPIRIN PO SCH (12:13)
[2017-03-03] MEDS: ZESTRIL PO SCH (12:13)
== END 2017-03-03 16:00 | disposition home or self-care (01) | DRG 189 ==
LOC: ED 04:41 → 3A 08:58
PROVIDERS: ADMIT Internal Medicine; ATTEND Internal Medicine
PROC: 4A033R1 Measurement of Arterial Saturation, Peripheral, Percutaneous Approach (ICD-10-PCS; principal; 2017-03-02)
DX: J96.01 Acute respiratory failure with hypoxia (principal); J44.1 Chronic obstructive pulmonary disease with (acute) exacerbation; I10 Essential (primary) hypertension; F17.200 Nicotine dependence, unspecified, uncomplicated; I16.0 Hypertensive urgency; J20.9 Acute bronchitis, unspecified; E11.9 Type 2 diabetes mellitus without complications; Z71.6 Tobacco abuse counseling
CPT/HCPCS: 36415; 71020; 80048; 80053; 80074; 81001; 82140; 82803; 82805; 82962; 83036; 83735; 83880; 84484; 85025; 85610; 85730; 87040; 87086; 87205; 93005; 93010; 94640; 94760; 99406; J1650; J1815; J1956; J2920; J2930; J3475

== ENCOUNTER 2017-07-18 13:31 | Emergency (ER) | payer SELFPAY ==
[2017-07-18 13:40] VITALS: BP 129/90
[2017-07-18] MEDS ORDERED: PROVENTIL IH ONE ×2 (13:53→14:14)
[2017-07-18] MEDS ORDERED: ATROVENT IH ONE ×2 (13:53→14:16)
--- NOTE | 2017-07-18 17:09 | XRay Report ---
FINAL REPORT PROCEDURE: XR CHEST ROUTINE 2V TECHNIQUE: PA and lateral chest radiographs were obtained. CPT 59650 HISTORY: Shortness of breath. COMPARISON: No prior studies are available for comparison. FINDINGS: Heart: Normal. Mediastinum/Vessels: Normal. Lungs/Pleural space: Subtle perihilar indistinctness/peribronchial thickening. Bony thorax: Multilevel disc space narrowing and osteophytes. Other: IMPRESSION: Subtle perihilar indistinctness/peribronchial thickening. Consider mild congestive heart failure or pneumonitis/bronchitis.
[2017-07-18 17:45] LABS: BUN/Creatinine Ratio 18; Blood Urea Nitrogen 11 mg/dL (7-17); Calcium 8.7 mg/dL (8.4-10.2); Hemolysis Index 8
[2017-07-18 17:48] LABS: Hematocrit 43.8 % (30.3-42.9); Mean Corpuscular HGB Conc 32 % (30-34); Mean Corpuscular Hemoglobin 29 pg (28-32); Mean Corpuscular Volume 89 fl (79-97); Platelet Count 284 K/mm3 (140-440); Red Blood Count 4.91 M/mm3 (3.65-5.03); Red Cell Distribution Width 17.1 % (13.2-15.2)
[2017-07-18 19:42] LABS: Platelet Estimate Consistent w Auto; Total Cells Counted 100
[2017-07-18] MEDS ORDERED: DELTASONE PO ONE (20:57)
--- NOTE | 2017-07-18 21:20 | Emergency Department Report ---
ED General Adult HPI - General Chief complaint: Dyspnea/Respdistress Stated complaint: SOB Time Seen by Provider: 07/18/17 21:17 Source: patient Mode of arrival: Ambulatory Limitations: No Limitations - History of Present Illness Initial comments: Is a 52-year-old female past medical history of COPD who presents for shortness of breath that occurred for the last couple days. Patient states that she tried her albuterol treatments and it did not improve her shortness of breath. Patient denies having any chest pain she also states that she has never been intubated before for COPD. Patient's COPD is moderate weather change and exertion makes it worse breathing treatments make it better. Patient states that she is out of her breathing treatments at home. - Related Data Previous Rx's Medication Instructions Recorded Last Taken Type Albuterol (Nf) 2 puff IH BID #1 03/03/17 Unknown Rx Albuterol Sulfate [Albuterol 0.63% 0.63 mg IH TID PRN #60 ml 03/03/17 Unknown Rx NEBS] Enalapril Maleate 10 mg PO DAILY #30 03/03/17 Unknown Rx Flovent 44 MCG/PUFF HFA 2 puff IH BID #30 03/03/17 Unknown Rx Levofloxacin [Levaquin TAB] 500 mg PO QDAY #5 tablet 03/03/17 Unknown Rx Nebulizer [Aeroneb Go Nebulizer] 1 each MC TID #1 each 03/03/17 Unknown Rx Omeprazole Magnesium [PriLOSEC] 10 mg PO QDAY #30 suspdr.pkt 03/03/17 Unknown Rx Pravastatin Sodium [Pravastatin] 10 mg PO QHS #30 tablet 03/03/17 Unknown Rx Prednisone [predniSONE 5 mg (6-Day 5 mg PO .TAPER #1 tab.ds.pk 03/03/17 Unknown Rx Pack, 21 Tabs)] metFORMIN 500 mg PO BID #30 03/03/17 Unknown Rx ALBUTEROL Inhaler [ProAir HFA 4 puff IH QID PRN #1 inhalation 07/18/17 Unknown Rx Inhaler] Doxycycline [Vibramycin CAP] 100 mg PO Q12HR #8 capsule 07/18/17 Unknown Rx guaiFENesin ER [Mucinex ER] 600 mg PO Q12H #30 tablet.er 07/18/17 Unknown Rx predniSONE [Deltasone] 20 mg PO QDAY #10 tab 07/18/17 Unknown Rx Allergies Allergy/AdvReac Type Severity Reaction Status Date / Time No Known Allergies Allergy Unverified 11/02/13 13:26 ED Review of Systems ROS: Stated complaint: SOB Other details as noted in HPI Constitutional: denies: chills, fever Eyes: denies: eye pain, eye discharge, vision change ENT: denies: ear pain, throat pain Respiratory: shortness of breath. denies: cough, wheezing Cardiovascular: denies: chest pain, palpitations Endocrine: no symptoms reported Gastrointestinal: denies: abdominal pain, nausea, diarrhea Genitourinary: denies: urgency, dysuria, discharge Musculoskeletal: denies: back pain, joint swelling, arthralgia Skin: denies: rash, lesions Neurological: denies: headache, weakness, paresthesias Psychiatric: denies: anxiety, depression Hematological/Lymphatic: denies: easy bleeding, easy bruising ED Past Medical Hx - Past Medical History Hx Hypertension: Yes Hx Heart Attack/AMI: No Hx Congestive Heart Failure: No Hx Diabetes: Yes Hx Deep Vein Thrombosis: No Hx Pulmonary Embolism: No Hx Liver Disease: No Hx Sickle Cell Disease: No Hx Asthma: Yes Hx COPD: Yes Hx Tuberculosis: No Hx HIV: No - Surgical History Hx Coronary Stent: No Hx Open Heart Surgery: No Hx Pacemaker: No Hx Internal Defibrillator: No Hx Appendectomy: No Hx Breast Surgery: No Additional Surgical History: c-sect x2 - Social History Smoking Status: Never Smoker Substance Use Type: None - Medications Home Medications: Home Medications Medication Instructions Recorded Confirmed Last Taken Type Albuterol (Nf) 2 puff IH BID #1 03/03/17 Unknown Rx Albuterol Sulfate [Albuterol 0.63% 0.63 mg IH TID PRN #60 ml 03/03/17 Unknown Rx NEBS] Enalapril Maleate 10 mg PO DAILY #30 03/03/17 Unknown Rx Flovent 44 MCG/PUFF HFA 2 puff IH BID #30 03/03/17 Unknown Rx Levofloxacin [Levaquin TAB] 500 mg PO QDAY #5 tablet 03/03/17 Unknown Rx Nebulizer [Aeroneb Go Nebulizer] 1 each MC TID #1 each 03/03/17 Unknown Rx Omeprazole Magnesium [PriLOSEC] 10 mg PO QDAY #30 suspdr.pkt 03/03/17 Unknown Rx Pravastatin Sodium [Pravastatin] 10 mg PO QHS #30 tablet 03/03/17 Unknown Rx Prednisone [predniSONE 5 mg (6-Day 5 mg PO .TAPER #1 tab.ds.pk 03/03/17 Unknown Rx Pack, 21 Tabs)] metFORMIN 500 mg PO BID #30 03/03/17 Unknown Rx ALBUTEROL Inhaler [ProAir HFA 4 puff IH QID PRN #1 inhalation 07/18/17 Unknown Rx Inhaler] Doxycycline [Vibramycin CAP] 100 mg PO Q12HR #8 capsule 07/18/17 Unknown Rx guaiFENesin ER [Mucinex ER] 600 mg PO Q12H #30 tablet.er 07/18/17 Unknown Rx predniSONE [Deltasone] 20 mg PO QDAY #10 tab 07/18/17 Unknown Rx ED Physical Exam - General Limitations: No Limitations General appearance: alert, in no apparent distress - Head Head exam: Present: atraumatic, normocephalic - Eye Eye exam: Present: normal appearance - ENT ENT exam: Present: mucous membranes moist - Neck Neck exam: Present: normal inspection - Respiratory Respiratory exam: Present: wheezes. Absent: respiratory distress - Cardiovascular Cardiovascular Exam: Present: regular rate, normal rhythm. Absent: systolic murmur, diastolic murmur, rubs, gallop - GI/Abdominal GI/Abdominal exam: Present: soft, normal bowel sounds - Extremities Exam Extremities exam: Present: normal inspection - Back Exam Back exam: Present: normal inspection - Neurological Exam Neurological exam: Present: alert, oriented X3 - Psychiatric Psychiatric exam: Present: normal affect, normal mood - Skin Skin exam: Present: warm, dry, intact, normal color. Absent: rash ED Course Vital Signs 07/18/17 07/18/17 07/18/17 13:37 14:25 15:40 Temperature 97.9 F Pulse Rate 108 H Pulse Rate [ 88 92 H Anterior] Respiratory 28 H Rate Respiratory 24 22 Rate [Anterior] Blood Pressure 129/90 O2 Sat by Pulse 95 Oximetry ED Medical Decision Making - Lab Data Result diagrams: 07/18/17 17:20 07/18/17 17:20 Lab Results 07/18/17 07/18/17 Range/Units 17:20 17:20 WBC 9.9 (4.5-11.0) K/mm3 RBC 4.91 (3.65-5.03) M/mm3 Hgb 14.0 (10.1-14.3) gm/dl Hct 43.8 H (30.3-42.9) % MCV 89 (79-97) fl MCH 29 (28-32) pg MCHC 32 (30-34) % RDW 17.1 H (13.2-15.2) % Plt Count 284 (140-440) K/mm3 Eos % (Auto) Violin Maker Hand Add Manual Diff Complete Total Counted 100 Seg Neuts % (Manual) 48.0 (40.0-70.0) % Band Neutrophils % 0 % Lymphocytes % (Manual) 27.0 (13.4-35.0) % Reactive Lymphs % (Man) 0 % Monocytes % (Manual) 2.0 (0.0-7.3) % Eosinophils % (Manual) 22.0 H (0.0-4.3) % Basophils % (Manual) 1.0 (0.0-1.8) % Metamyelocytes % 0 % Myelocytes % 0 % Promyelocytes % 0 % Blast Cells % 0 % Nucleated RBC % Not Reportable Seg Neutrophils # Man 4.8 (1.8-7.7) K/mm3 Band Neutrophils # 0.0 K/mm3 Lymphocytes # (Manual) 2.7 (1.2-5.4) K/mm3 Abs React Lymphs (Man) 0.0 K/mm3 Monocytes # (Manual) 0.2 (0.0-0.8) K/mm3 Eosinophils # (Manual) 2.2 H (0.0-0.4) K/mm3 Basophils # (Manual) 0.1 (0.0-0.1) K/mm3 Metamyelocytes # 0.0 K/mm3 Myelocytes # 0.0 K/mm3 Promyelocytes # 0.0 K/mm3 Blast Cells # 0.0 K/mm3 WBC Morphology Not Reportable Hypersegmented Neuts Not Reportable Hyposegmented Neuts Not Reportable Hypogranular Neuts Not Reportable Smudge Cells Not Reportable Toxic Granulation Not Reportable Toxic Vacuolation Not Reportable Dohle Bodies Not Reportable Pelger-Huet Anomaly Not Reportable Tor Rods Not Reportable Platelet Estimate Consistent w auto Clumped Platelets Not Reportable Plt Clumps, EDTA Not Reportable Large Platelets Not Reportable Giant Platelets Not Reportable Platelet Satelliting Not Reportable Plt Morphology Comment Not Reportable RBC Morphology Not Reportable Dimorphic RBCs Not Reportable Polychromasia Not Reportable Hypochromasia Not Reportable Poikilocytosis Not Reportable Anisocytosis Not Reportable Microcytosis Not Reportable Macrocytosis Not Reportable Spherocytes Not Reportable Pappenheimer Bodies Not Reportable Sickle Cells Not Reportable Target Cells Not Reportable Tear Drop Cells Not Reportable Ovalocytes Not Reportable Helmet Cells Not Reportable [place] Bodies Not Reportable [place] Rings Not Reportable Raymundo Cells Not Reportable Bite Cells Not Reportable Crenated Cell Not Reportable Elliptocytes Not Reportable Acanthocytes (Spur) Not Reportable Rouleaux Not Reportable Hemoglobin C Crystals Not Reportable Schistocytes Not Reportable Malaria parasites Not Reportable Jose Bodies Not Reportable Hem Pathologist Commnt No Sodium 141 (137-145) mmol/L Potassium 3.6 (3.6-5.0) mmol/L Chloride 98.4 (98-107) mmol/L Carbon Dioxide 27 (22-30) mmol/L Anion Gap 19 mmol/L BUN 11 (7-17) mg/dL Creatinine 0.6 L (0.7-1.2) mg/dL Estimated GFR > 60 ml/min BUN/Creatinine Ratio 18 % Glucose 129 H (65-100) mg/dL Calcium 8.7 (8.4-10.2) mg/dL - EKG Data -: EKG Interpreted by [facility] - EKG Data 07/18/17 21:25 EKG shows normal sinus rhythm no ST segment elevation noted T-wave inversion no axis deviation. - Radiology Data Radiology results: report reviewed Chest x-ray: Shows moderate pneumonitis - Medical Decision Making Cdx: COPD ddx: PNA, Asthma exacerbation I will give patient breathing treatments, ekg, chest xray, steroids and blood work. Patient is feeling better after the breathing treatments. Discussed plan for discharge with patient. Additional verbal discharge instructions were given and patient agrees with plan. Critical care attestation.: If time is entered above; I have spent that time in minutes in the direct care of this critically ill patient, excluding procedure time. ED Disposition Clinical Impression: COPD with acute exacerbation, SOB (shortness of breath) Disposition: DC-01 TO HOME OR SELFCARE Is pt being admited?: No Does the pt Need Aspirin: No Condition: Stable Instructions: Chronic Obstructive Pulmonary Disease (ED) Prescriptions: ALBUTEROL Inhaler [ProAir HFA Inhaler] 4 puff IH QID PRN #1 inhalation PRN Reason: Shortness Of Breath Doxycycline [Vibramycin CAP] 100 mg PO Q12HR #8 capsule guaiFENesin ER [Mucinex ER] 600 mg PO Q12H #30 tablet.er predniSONE [Deltasone] 20 mg PO QDAY #10 tab Referrals: TAMI JEFFERS MD [Referring] - 3-5 Days
== END 2017-07-18 22:03 | disposition home or self-care (01) ==
LOC: ED 13:31
DX: J44.1 Chronic obstructive pulmonary disease with (acute) exacerbation (principal); I10 Essential (primary) hypertension; E11.9 Type 2 diabetes mellitus without complications
CPT/HCPCS: 36415; 71046; 80048; 85007; 85025; 94640; 99284; J7512

== ENCOUNTER 2017-10-09 17:24 | Emergency (ER) | payer SELFPAY ==
[2017-10-09 18:47] LABS: Hematocrit 42.1 % (30.3-42.9); Hemoglobin 13.6 gm/dl (10.1-14.3); Mean Corpuscular HGB Conc 32 % (30-34); Mean Corpuscular Hemoglobin 29 pg (28-32); Mean Corpuscular Volume 89 fl (79-97); Platelet Count 276 K/mm3 (140-440); Red Blood Count 4.73 M/mm3 (3.65-5.03); Red Cell Distribution Width 15.8 % (13.2-15.2)
[2017-10-09 19:07] LABS: BUN/Creatinine Ratio 20; Blood Urea Nitrogen 12 mg/dL (7-17); Calcium 8.6 mg/dL (8.4-10.2); Hemolysis Index 13
--- NOTE | 2017-10-09 19:28 | XRay Report ---
FINAL REPORT PROCEDURE: XR CHEST ROUTINE 2V TECHNIQUE: PA and lateral chest radiographs were obtained. CPT 43743 HISTORY: Shortness of breath. COMPARISON: Chest radiograph dated 07/18/2017. FINDINGS: Heart: Normal. Mediastinum/Vessels: Normal. Lungs/Pleural space: Subtle peribronchial thickening. Mild hyperinflation. Bony thorax: Multilevel disc space narrowing and osteophytes of the thoracic spine. Other: IMPRESSION: Mild hyperinflation suggests obstructive physiology. Subtle peribronchial thickening, consider mild bronchitis/pneumonitis.
[2017-10-09 19:34] LABS: Basophils % (Manual) 0 % (0.0-1.8); Total Cells Counted 100
[2017-10-09 19:35] LABS: Anisocytosis 2+; Poikilocytosis 1+
[2017-10-10] MEDS ORDERED: PROVENTIL IH ONE (00:27)
[2017-10-10] MEDS ORDERED: ATROVENT IH ONE (00:27)
--- NOTE | 2017-10-10 00:39 | Emergency Department Report ---
ED Shortness of Breath HPI - General Chief Complaint: Dyspnea/Respdistress Stated Complaint: SARAH Time Seen by Provider: 10/10/17 00:25 Source: patient Mode of arrival: Ambulatory Limitations: No Limitations - History of Present Illness Initial Comments: Sick all weekend with asthma attack here for evaluation of worsening COPD as chest pain MD Complaint: shortness of breath, "asthma attack" Known History Of: COPD, asthma Associated Symptoms: denies other symptoms Treatments Prior to Arrival: none (still smoking and admits that she has been out of her blood pressure pills. She denies any chest pain but she is having intermittent wheezes with shortness of breath) - Related Data Previous Rx's Medication Instructions Recorded Last Taken Type Albuterol (Nf) 2 puff IH BID #1 03/03/17 Unknown Rx Flovent 44 MCG/PUFF HFA 2 puff IH BID #30 03/03/17 Unknown Rx Levofloxacin [Levaquin TAB] 500 mg PO QDAY #5 tablet 03/03/17 Unknown Rx Nebulizer [Aeroneb Go Nebulizer] 1 each MC TID #1 each 03/03/17 Unknown Rx Omeprazole Magnesium [PriLOSEC] 10 mg PO QDAY #30 suspdr.pkt 03/03/17 Unknown Rx Pravastatin Sodium [Pravastatin] 10 mg PO QHS #30 tablet 03/03/17 Unknown Rx Prednisone [predniSONE 5 mg (6-Day 5 mg PO .TAPER #1 tab.ds.pk 03/03/17 Unknown Rx Pack, 21 Tabs)] metFORMIN 500 mg PO BID #30 03/03/17 Unknown Rx ALBUTEROL Inhaler [ProAir HFA 4 puff IH QID PRN #1 inhalation 07/18/17 Unknown Rx Inhaler] guaiFENesin ER [Mucinex ER] 600 mg PO Q12H #30 tablet.er 07/18/17 Unknown Rx Albuterol Sulfate [Albuterol 0.63% 0.63 mg IH TID PRN #60 ml 10/10/17 Unknown Rx NEBS] Doxycycline [Vibramycin CAP] 100 mg PO Q12HR #8 capsule 10/10/17 Unknown Rx Enalapril Maleate 10 mg PO DAILY #30 10/10/17 Unknown Rx predniSONE [Deltasone] 20 mg PO QDAY #10 tab 10/10/17 Unknown Rx Allergies Allergy/AdvReac Type Severity Reaction Status Date / Time No Known Allergies Allergy Unverified 11/02/13 13:26 ED Review of Systems ROS: Stated complaint: SARAH Other details as noted in HPI Comment: All other systems reviewed and negative Constitutional: denies: diaphoresis, fever, malaise ENT: denies: dental pain, hearing loss, epistaxis Respiratory: shortness of breath, SOB with exertion, SOB at rest, wheezing. denies: stridor Cardiovascular: denies: chest pain, palpitations, dyspnea on exertion, orthopnea , edema, syncope, paroxysmal nocturnal dyspnea Gastrointestinal: denies: abdominal pain, nausea, vomiting, diarrhea, constipation, hematemesis, melena, hematochezia Skin: denies: rash, lesions, change in color Neurological: denies: headache, weakness, numbness, paresthesias, confusion, abnormal gait Hematological/Lymphatic: denies: easy bruising ED Past Medical Hx - Past Medical History Previous Medical History?: Yes Hx Hypertension: Yes Hx Heart Attack/AMI: No Hx Congestive Heart Failure: No Hx Diabetes: Yes Hx Deep Vein Thrombosis: No Hx Pulmonary Embolism: No Hx Liver Disease: No Hx Sickle Cell Disease: No Hx Asthma: Yes Hx COPD: Yes Hx Tuberculosis: No Hx HIV: No - Surgical History Past Surgical History?: Yes Hx Coronary Stent: No Hx Open Heart Surgery: No Hx Pacemaker: No Hx Internal Defibrillator: No Hx Appendectomy: No Hx Breast Surgery: No Additional Surgical History: c-sect x2 - Social History Smoking Status: Current Every Day Smoker Substance Use Type: Alcohol, Prescribed - Medications Home Medications: Home Medications Medication Instructions Recorded Confirmed Last Taken Type Albuterol (Nf) 2 puff IH BID #1 03/03/17 Unknown Rx Flovent 44 MCG/PUFF HFA 2 puff IH BID #30 03/03/17 Unknown Rx Levofloxacin [Levaquin TAB] 500 mg PO QDAY #5 tablet 03/03/17 Unknown Rx Nebulizer [Aeroneb Go Nebulizer] 1 each MC TID #1 each 03/03/17 Unknown Rx Omeprazole Magnesium [PriLOSEC] 10 mg PO QDAY #30 suspdr.pkt 03/03/17 Unknown Rx Pravastatin Sodium [Pravastatin] 10 mg PO QHS #30 tablet 03/03/17 Unknown Rx Prednisone [predniSONE 5 mg (6-Day 5 mg PO .TAPER #1 tab.ds.pk 03/03/17 Unknown Rx Pack, 21 Tabs)] metFORMIN 500 mg PO BID #30 03/03/17 Unknown Rx ALBUTEROL Inhaler [ProAir HFA 4 puff IH QID PRN #1 inhalation 07/18/17 Unknown Rx Inhaler] guaiFENesin ER [Mucinex ER] 600 mg PO Q12H #30 tablet.er 07/18/17 Unknown Rx Albuterol Sulfate [Albuterol 0.63% 0.63 mg IH TID PRN #60 ml 10/10/17 Unknown Rx NEBS] Doxycycline [Vibramycin CAP] 100 mg PO Q12HR #8 capsule 10/10/17 Unknown Rx Enalapril Maleate 10 mg PO DAILY #30 10/10/17 Unknown Rx predniSONE [Deltasone] 20 mg PO QDAY #10 tab 10/10/17 Unknown Rx ED Physical Exam - General Limitations: No Limitations General appearance: alert, anxious, other (to moderate respiratory distress with wheezes) - Head Head exam: Present: atraumatic, normocephalic - Eye Eye exam: Present: PERRL, EOMI - ENT ENT exam: Present: normal exam, normal orophraynx - Neck Neck exam: Present: normal inspection. Absent: tenderness, meningismus - Respiratory Respiratory exam: Present: wheezes, rhonchi, accessory muscle use, prolonged expiratory. Absent: stridor - Cardiovascular Cardiovascular Exam: Present: tachycardia, normal heart sounds - GI/Abdominal GI/Abdominal exam: Present: soft. Absent: tenderness, guarding, rebound, rigid , mass, pulsatile mass - Extremities Exam Extremities exam: Present: normal inspection, normal capillary refill. Absent: pedal edema, joint swelling, calf tenderness - Back Exam Back exam: Present: normal inspection. Absent: CVA tenderness (L), muscle spasm , paraspinal tenderness, vertebral tenderness - Neurological Exam Neurological exam: Present: alert, oriented X3, CN II-XII intact. Absent: motor sensory deficit - Psychiatric Psychiatric exam: Present: anxious - Skin Skin exam: Absent: cyanosis, diaphoretic, erythema, urticaria, vesicles, petechiae, pallor ED Course Vital Signs 10/09/17 10/10/17 10/10/17 17:28 00:27 01:00 Temperature 97.8 F 98.4 F Pulse Rate 90 79 86 Pulse Rate [ Bilateral Throughout] Respiratory 22 24 16 Rate Respiratory Rate [Bilateral Throughout] Blood Pressure 172/94 125/86 Blood Pressure 148/93 [Left] O2 Sat by Pulse 93 95 98 Oximetry 10/10/17 10/10/17 10/10/17 01:15 01:31 02:00 Temperature Pulse Rate 91 H 92 H Pulse Rate [ 110 H Bilateral Throughout] Respiratory 17 26 H Rate Respiratory 20 Rate [Bilateral Throughout] Blood Pressure 131/96 147/90 Blood Pressure [Left] O2 Sat by Pulse 97 93 Oximetry 10/10/17 10/10/17 02:30 04:30 Temperature Pulse Rate 88 94 H Pulse Rate [ Bilateral Throughout] Respiratory 21 25 H Rate Respiratory Rate [Bilateral Throughout] Blood Pressure 124/74 154/97 Blood Pressure [Left] O2 Sat by Pulse 93 91 Oximetry ED Medical Decision Making - Lab Data Result diagrams: 10/09/17 18:30 10/09/17 18:30 - EKG Data -: EKG Interpreted by [facility] EKG shows normal: sinus rhythm - EKG Data Interpretation: other (no acute ischemic change) - Radiology Data Radiology results: report reviewed - Medical Decision Making Patient is improved in the ED with hour-long DuoNeb. She was given steroids. She'll be discharged in stable condition chest x-ray shows mild COPD with possible pneumonitis. However patient does have stable vital signs she is afebrile she is nontoxic she is tolerating by mouth. She does not meet curb 65 criteria. She has no cyanosis. The room air sat was 93% she is a smoker. Critical care attestation.: If time is entered above; I have spent that time in minutes in the direct care of this critically ill patient, excluding procedure time. ED Disposition Clinical Impression: COPD with acute exacerbation Disposition: DC-01 TO HOME OR SELFCARE Is pt being admited?: No Condition: Stable Instructions: Chronic Obstructive Pulmonary Disease (ED) Additional Instructions: Return immediately if new or alarming symptoms take her medicine as directed see the doctor listed her regular doctor Prescriptions: Albuterol Sulfate [Albuterol 0.63% NEBS] 0.63 mg IH TID PRN #60 ml PRN Reason: Wheezing Doxycycline [Vibramycin CAP] 100 mg PO Q12HR #8 capsule Enalapril Maleate 10 mg PO DAILY #30 predniSONE [Deltasone] 20 mg PO QDAY #10 tab Referrals: PRIMARY CARE, [Primary Care Provider] - 3-5 Days JOHN SMITH MD [Staff Physician] - 3-5 Days Time of Disposition: 05:36
[2017-10-10 06:03] VITALS: BP 139/87
== END 2017-10-10 06:05 | disposition home or self-care (01) ==
LOC: ED 17:24
DX: J44.1 Chronic obstructive pulmonary disease with (acute) exacerbation (principal); I10 Essential (primary) hypertension; E11.9 Type 2 diabetes mellitus without complications; F17.200 Nicotine dependence, unspecified, uncomplicated
CPT/HCPCS: 36415; 71046; 80048; 84484; 85007; 85025; 93005; 93010; 94644; 96374; 99284; J2930